=== PATIENT | male | born 1980 | race Caucasian/White ===

== ENCOUNTER 2018-09-08 15:20 | Emergency (ER) | payer SELFPAY ==
[2018-09-08 15:46] LABS: ABSOLUTE BASOPHILS # (AUTO) 0.1 10^3/uL (0.0-0.2); ABSOLUTE EOSINOPHILS # (AUTO) 0.3 10^3/uL (0.0-0.6); ABSOLUTE LYMPHOCYTES (AUTO) 2.5 10^3/uL (0.5-4.7); ABSOLUTE MONOCYTES (AUTO) 0.9 10^3/uL (0.1-1.4); ABSOLUTE NEUT (AUTO) 6.5 10^3/uL (1.7-8.2); BASOPHILS % (AUTO) 0.7 % (0-2); EOSINOPHILS % (AUTO) 3.4 % (0-6); HEMATOCRIT 50.2 % (37.9-51.0); HEMOGLOBIN 17.3 g/dL (13.5-17.0); LYMPHOCYTES % (AUTO) 24.2 % (13-45); MEAN CORPUSCULAR HEMOGLOBIN 32.3 pg (27.0-33.4); MEAN CORPUSCULAR HGB CONC 34.4 g/dL (32.0-36.0); MEAN CORPUSCULAR VOLUME 94 fl (80-97); MONOCYTES % (AUTO) 8.3 % (3-13); PLATELET COUNT 223 10^3/uL (150-450); RED BLOOD COUNT 5.36 10^6/uL (4.35-5.55); RED CELL DISTRIBUTION WIDTH 12.2 % (11.5-14.0); SEGMENTED NEUTROPHILS % (AUTO) 63.4 % (42-78); TOTAL CELLS COUNTED % (AUTO) 100 %; WHITE BLOOD COUNT 10.3 10^3/uL (4.0-10.5)
[2018-09-08 16:05] LABS: ALANINE AMINOTRANSFERASE 65 U/L (21-72); ALBUMIN 4.7 g/dL (3.5-5.0); ALCOHOL 43 mg/dL (NONE DETECTED); ALKALINE PHOSPHATASE 75 U/L (38-126); ANION GAP 15 (5-19); ASPARTATE AMINO TRANSFERASE 49 U/L (17-59); BILIRUBIN,DIRECT 0.2 mg/dL (0.0-0.4); BILIRUBIN,TOTAL 0.6 mg/dL (0.2-1.3); BLOOD UREA NITROGEN 11 mg/dL (7-20); CARBON DIOXIDE 21 mmol/L (22-30); CHLORIDE 107 mmol/L (98-107); GLUCOSE 90 mg/dL (75-110); POTASSIUM 4.5 mmol/L (3.6-5.0); SODIUM 142.5 mmol/L (137-145); TOTAL PROTEIN 7.2 g/dL (6.3-8.2)
[2018-09-08 16:16] LABS: APPEARANCE,URINE CLEAR; BILIRUBIN,URINE NEGATIVE (NEGATIVE); COLOR,URINE YELLOW; GLUCOSE, URINE NEGATIVE (NEGATIVE); KETONES,URINE TRACE mg/dL (NEGATIVE); LEUKOCYTE ESTERASE,URINE NEGATIVE (NEGATIVE); NITRITE,URINE NEGATIVE (NEGATIVE); PROTEIN,URINE NEGATIVE (NEGATIVE); URINE SPECIFIC GRAVITY 1.009; UROBILINOGEN,URINE NEGATIVE mg/dL (<2.0)
[2018-09-08 16:39] LABS: URINE AMPHETAMINES SCREEN NEGATIVE; URINE BARBITURATES SCREEN NEGATIVE; URINE BENZODIAZEPINES SCREEN NEGATIVE; URINE COCAINE SCREEN NEGATIVE; URINE MARIJUANA (THC) SCREEN UNCONFIRMED POSITIVE; URINE METHADONE SCREEN NEGATIVE; URINE PHENCYCLIDINE SCREEN NEGATIVE
[2018-09-08 17:15] VITALS: BP 111/79
--- NOTE | 2018-09-08 17:27 | ER Document Report ---
ED Seizure - General Chief Complaint: Seizure Stated Complaint: POSSIBLE SEIZURE Time Seen by Provider: 09/08/18 16:20 Notes: Patient had a seizure today, witnessed by his . He has a seizure disorder for which she takes Depakote 250 mg, 3 pills twice a day. Patient says he has been taking his medications as prescribed. says that he had his most recent seizure yesterday, but then is for 3 weeks before that that it was the next most recent. Has been told that his seizures are stress related and that he is more prone to having them when he is under stressful conditions. Did not bite his tongue and did not lose control of his bladder or bowel. Patient has had seizures since 2016 when he suffered a "heat stroke", but says they were told he had a CVA. She says that when he has a seizure his left side becomes very weak. Has not been sick recently. No fevers. Has a history of bipolar disorder and PTSD. Patient says he does drink small amount of alcohol occasionally. First visit to our emergency department. Patient and recently moved here to [place]. - Related Data Allergies/Adverse Reactions: bee venom protein (honey bee) Allergy (Verified 09/08/18 17:16) Past Medical History - Social History Smoking Status: Current Every Day Smoker Frequency of alcohol use: Occasional Family History: Reviewed & Not Pertinent Patient has suicidal ideation: No Patient has homicidal ideation: No Pulmonary Medical History: Reports: Hx Asthma Neurological Medical History: Reports: Hx Seizures Psychiatric Medical History: Reports: Hx Bipolar Disorder, Hx Schizophrenia Past Surgical History: Reports: Hx Appendectomy, Hx Orthopedic Surgery - L Shoulder Review of Systems - Review of Systems Notes: REVIEW OF SYSTEMS: CONSTITUTIONAL : Denies fever. EENT: Denies eye, ear, nose or mouth or throat pain or other symptoms. CARDIOVASCULAR: Denies chest pain. RESPIRATORY: Denies cough, chest congestion, or shortness of breath. GASTROINTESTINAL: Denies abdominal pain or nausea, vomiting, or diarrhea. GENITOURINARY: Denies difficulty or painful urinating, urinary frequency, blood in urine. MUSCULOSKELETAL: Denies back or neck pain. Denies joint pain or swelling. SKIN: Denies rash or skin lesions. NEUROLOGICAL: See HPI. Denies headache. Denies sensory loss or motor deficits. ALL OTHER SYSTEMS REVIEWED AND NEGATIVE. Physical Exam - Vital signs Vitals: Resp Pulse Ox 20 95 09/08/18 15:35 09/08/18 15:35 Interpretation: Normal. No: Febrile Notes: PHYSICAL EXAMINATION: GENERAL: Well-appearing, in no acute distress. Awake and alert and answers questions appropriately. HEAD: Atraumatic, normocephalic. EYES: Pupils equal round and reactive to light, extraocular movements intact. ENT: oropharynx clear without exudates. Moist mucous membranes. Tongue not chewed. NECK: Normal range of motion, supple. LUNGS: Breath sounds clear and equal bilaterally. HEART: Regular rate and rhythm without murmurs. ABDOMEN: Soft, nontender. No guarding or rebound. No masses. BACK: No tenderness throughout entire back. EXTREMITIES: Normal range of motion without pain. NEUROLOGICAL: Normal speech, normal gait. Normal sensory, motor, and reflex exams. Awake, alert, and oriented x3. Cranial nerves normal. PSYCH: Normal mood, normal affect. SKIN: Warm, dry, no rashes. Course - Re-evaluation Re-evalutation: 09/08/18 18:22 Had no additional seizures while in the emergency department. Labs were essentially unremarkable. His Depakote level is in the lower most portion of the therapeutic range. I recommended that they increase his nighttime dose of Depakote to 4 pills. Asked them to try to establish with a local neurologist, perhaps in [place]. [facility] information about [facility]. - Vital Signs Vital signs: Temp Pulse Resp BP Pulse Ox 98.1 F 20 111/79 96 09/08/18 17:15 09/08/18 17:01 09/08/18 17:01 09/08/18 17:01 - Laboratory Result Diagrams: 09/08/18 15:00 09/08/18 15:00 Laboratory results interpreted by me: 09/08/18 09/08/18 09/08/18 15:00 15:00 15:45 Hgb 17.3 H Carbon Dioxide 21 L Urine Ketones TRACE H Discharge - Discharge Clinical Impression: Seizures Condition: Stable Disposition: HOME, SELF-CARE Additional Instructions: Seizure You have had a seizure. Seizure disorders (epilepsy) of one sort or another affect about one out of 50 people. The seizure occurs because of abnormal electrical activity in the brain. Seizures may be due to drugs and alcohol, strokes, brain injury, or infection. In the most common form of epilepsy, no cause can be found. You will require further evaluation to determine the cause of your seizure, and to determine whether anti-seizure medication is required. This follow-up testing is important, so please call us if you encounter problems with scheduling of tests or appointments. YOU SHOULD NOT DRIVE until released to do so by your physician. The law requires that seizures be reported to the auto driver's license bureau--a seizure while driving could be catastrophic. Call the doctor if seizures recur, or if you develop new symptoms such as fever, severe headache, stiff neck, confusion or increasing sleepiness, weakness or numbness, or visual problems. Your Depakote level was 57. The therapeutic range is from 50-120. Therefore, you are in the lower range of the therapeutic range. I would recommend you increase your Depakote by 1 pill at nighttime. You did have a small amount of alcohol in your system and you need to know that that might cause you to have a seizure. FOLLOW-UP CARE: If you have been referred to a physician for follow-up care, call the [facility] office for an appointment as you were instructed or within the next two days. If you experience worsening or a significant change in your symptoms, notify the physician immediately or return to the Emergency Department at any time for re-evaluation. Enclosed in your discharge paperwork is information about the [facility] here in [place].. It would be worth her while to contact them to see if you are eligible to be seen there for your medical care.
[2018-09-08] MEDS ORDERED: ZIPRASIDONE HCL 20 MG CAPSULE PO ONE (17:38)
[2018-09-08] MEDS ORDERED: OLANZAPINE 5 MG TAB.RAPDIS PO ONE (17:38)
[2018-09-08] MEDS ORDERED: DIPHENHYDRAMINE HCL 50 MG CAPSULE PO ONE (17:40)
--- NOTE | 2018-09-09 12:43 | EKG REPORT ---
SEVERITY:- NORMAL ECG - SINUS RHYTHM : Confirmed by: Aleta Johnson 09-Sep-2018 12:42:00
== END 2018-09-08 17:48 | disposition home or self-care (01) ==
LOC: ER 15:20
DX: G40.909 Epilepsy, unspecified, not intractable, without status epilepticus (principal); F17.200 Nicotine dependence, unspecified, uncomplicated
CPT/HCPCS: 36415; 80053; 80164; 80307; 81001; 82962; 83735; 85025; 93005; 93010; 99284

== ENCOUNTER 2019-03-08 12:21 | Emergency (ER) | payer SELFPAY ==
[2019-03-08 12:43] LABS: ABSOLUTE EOSINOPHILS # (AUTO) 0.2 10^3/uL (0.0-0.6); ABSOLUTE LYMPHOCYTES (AUTO) 2.1 10^3/uL (0.5-4.7); ABSOLUTE MONOCYTES (AUTO) 0.5 10^3/uL (0.1-1.4); ABSOLUTE NEUT (AUTO) 4.8 10^3/uL (1.7-8.2); BASOPHILS % (AUTO) 0.6 % (0-2); EOSINOPHILS % (AUTO) 2.3 % (0-6); HEMATOCRIT 45.6 % (37.9-51.0); HEMOGLOBIN 15.8 g/dL (13.5-17.0); MEAN CORPUSCULAR HEMOGLOBIN 31.3 pg (27.0-33.4); MEAN CORPUSCULAR HGB CONC 34.7 g/dL (32.0-36.0); MEAN CORPUSCULAR VOLUME 90 fl (80-97); MONOCYTES % (AUTO) 6.3 % (3-13); PLATELET COUNT 225 10^3/uL (150-450); RED BLOOD COUNT 5.06 10^6/uL (4.35-5.55); RED CELL DISTRIBUTION WIDTH 12.5 % (11.5-14.0); SEGMENTED NEUTROPHILS % (AUTO) 62.8 % (42-78); TOTAL CELLS COUNTED % (AUTO) 100 %; WHITE BLOOD COUNT 7.6 10^3/uL (4.0-10.5)
[2019-03-08 13:02] LABS: ALBUMIN 4.1 g/dL (3.5-5.0); ALCOHOL 20 mg/dL (NONE DETECTED); ALKALINE PHOSPHATASE 71 U/L (38-126); ANION GAP 12 (5-19); ASPARTATE AMINO TRANSFERASE 49 U/L (17-59); BILIRUBIN,DIRECT 0.2 mg/dL (0.0-0.4); BILIRUBIN,TOTAL 0.6 mg/dL (0.2-1.3); BLOOD UREA NITROGEN 9 mg/dL (7-20); CARBON DIOXIDE 19 mmol/L (22-30); CHLORIDE 109 mmol/L (98-107); GLUCOSE 86 mg/dL (75-110); POTASSIUM 3.9 mmol/L (3.6-5.0); TOTAL PROTEIN 6.5 g/dL (6.3-8.2)
--- NOTE | 2019-03-08 13:59 | ER Document Report ---
ED Seizure - General Chief Complaint: Seizure Stated Complaint: POSSIBLE SEIZURE Time Seen by Provider: 03/08/19 13:54 Notes: Patient brought in by EMS after having fallen out at work and apparently having had a seizure. Patient does not remember anything in fact, asked me "what happened?" When I entered his room. Patient says he was at work in the heat and does not remember anything after that. He does have a history of seizure disorder for which he is supposed to be taking Depakote 500 mg twice a day, but says he is missed some doses recently. He is currently complaining of some knee pain, back pain, and says he hit the front of his head. His last seizure was in September. Seizures apparently related to an old head injury in which the patient had a fracture of his left face and orbit and had to have a plate put in that area. Patient has not been ill or sick recently. Does drink alcohol. Smokes cigarettes. Denies chest pain. Denies abdominal pain. Denies any difficulty breathing. - Related Data Allergies/Adverse Reactions: bee venom protein (honey bee) Allergy (Verified 09/08/18 17:16) Past Medical History - Social History Smoking Status: Current Every Day Smoker Chew tobacco use (# tins/day): No Frequency of alcohol use: Everyday per Pt fiance. Drug Abuse: None Family History: Reviewed & Not Pertinent Patient has suicidal ideation: No Patient has homicidal ideation: No Pulmonary Medical History: Reports: Hx Asthma Neurological Medical History: Reports: Hx Seizures Renal/ Medical History: Denies: Hx Peritoneal Dialysis Psychiatric Medical History: Reports: Hx Bipolar Disorder, Hx Schizophrenia Past Surgical History: Reports: Hx Appendectomy, Hx Orthopedic Surgery - L Shoulder Review of Systems - Review of Systems -: Yes ROS unobtainable due to patient's medical condition Physical Exam - Vital signs Vitals: Resp Pulse Ox 21 H 97 03/08/19 12:32 03/08/19 12:32 Interpretation: Normal Notes: PHYSICAL EXAMINATION: GENERAL: Well-appearing, no acute distress. HEAD: Atraumatic, normocephalic. I do not see any abrasions or cuts or scrapes or swelling of the forehead region where the patient says he hit his head. NECK: Normal range of motion, supple. LUNGS: Breath sounds clear and equal bilaterally. HEART: Regular rate and rhythm without murmurs heard. ABDOMEN: Soft, nontender. No guarding or rebound or masses felt. Course - Re-evaluation Re-evalutation: 03/08/19 19:05 As I was finishing my initial examination of the patient, he asked how long it was going to take to finish taking care of him and I told him about an hour may be two and he said that he wanted to leave. I told him he had not been evaluated in good fall and reinjure himself. Also could choke or strangle her aspirate and causing serious injury or even . Patient understands but says he still wants to leave. His be unsafe was in the room during all of this conversation. Patient insisted upon leaving AGAINST MEDICAL ADVICE no matter what the potential consequences. It is my opinion that the patient has the capacity to make this judgment and is able to make decisions regarding his health care. 03/08/19 19:07 Patient's Depakote level came back essentially undetectable so obviously the patient has not been taking his medications at all. He did not want a prescription for Depakote when he left. - Vital Signs Vital signs: Temp Pulse Resp BP Pulse Ox 99.2 F 66 6 L 110/80 95 03/08/19 12:34 03/08/19 12:34 03/08/19 13:30 03/08/19 13:30 03/08/19 13:30 - Laboratory Result Diagrams: 03/08/19 12:26 03/08/19 12:26 Laboratory results interpreted by me: 03/08/19 03/08/19 12:26 12:26 Chloride 109 H Carbon Dioxide 19 L Valproic Acid < 10.0 L Discharge - Discharge Clinical Impression: Seizure Condition: Stable Disposition: AGAINST MEDICAL ADVICE Additional Instructions: Seizure You have probably had a seizure. Seizure disorders (epilepsy) of one sort or another affect about one out of 50 people. The seizure occurs because of abnormal electrical activity in the brain. Seizures may be due to drugs and alcohol, strokes, brain injury, or infection. In the most common form of epilepsy, no cause can be found. You will require further evaluation to determine the cause of your seizure, and to determine whether anti-seizure medication is required. This follow-up testing is important, so please call us if you encounter problems with scheduling of tests or appointments. YOU SHOULD NOT DRIVE until released to do so by your physician. The law requires that seizures be reported to the tanker truck driver's license bureau--a seizure whi le driving could be catastrophic. Call the doctor if seizures recur, or if you develop new symptoms such as fever, severe headache, stiff neck, confusion or increasing sleepiness, weakness or numbness, or visual problems. You are leaving against our advice, SHEILA. I have advised her that you could have another seizure at any time and suffer significant injuries. Some injuries can be mild, some can be serious, some can actually be fatal if you were to choke and aspirate saliva during a seizure. In spite of my advising you to stay and be fully evaluated, you are leaving against my advice. Please feel free to come back at any time if you wish to be further evaluated more completely.
[2019-03-08 14:24] VITALS: BP 110/80
--- NOTE | 2019-03-08 17:38 | EKG REPORT ---
SEVERITY:- NORMAL ECG - SINUS RHYTHM ST ELEV, PROBABLE NORMAL EARLY REPOL PATTERN : Confirmed by: Edmond Kelly MD 08-Mar-2019 17:37:57
== END 2019-03-08 14:17 | disposition left against medical advice (07) ==
LOC: ER 12:21
DX: G40.909 Epilepsy, unspecified, not intractable, without status epilepticus (principal); F17.210 Nicotine dependence, cigarettes, uncomplicated
CPT/HCPCS: 36415; 80053; 80164; 80307; 82962; 83735; 85025; 93005; 93010

== ENCOUNTER → 2019-05-16 | Outpatient (CLI) | payer OTHER ==
[2019-05-16 08:29] LABS: APPEARANCE,URINE CLEAR; BILIRUBIN,URINE NEGATIVE (NEGATIVE); COLOR,URINE YELLOW; GLUCOSE, URINE NEGATIVE (NEGATIVE); KETONES,URINE TRACE mg/dL (NEGATIVE); LEUKOCYTE ESTERASE,URINE NEGATIVE (NEGATIVE); NITRITE,URINE NEGATIVE (NEGATIVE); PROTEIN,URINE NEGATIVE (NEGATIVE); URINE SPECIFIC GRAVITY 1.012
[2019-05-16 08:31] LABS: ABSOLUTE BASOPHILS # (AUTO) 0.1 10^3/uL (0.0-0.2); ABSOLUTE EOSINOPHILS # (AUTO) 0.3 10^3/uL (0.0-0.6); BASOPHILS % (AUTO) 0.6 % (0-2); TOTAL CELLS COUNTED % (AUTO) 100 %
[2019-05-16 08:39] LABS: ABSOLUTE MONOCYTES (AUTO) 0.7 10^3/uL (0.1-1.4); ABSOLUTE NEUT (AUTO) 6.5 10^3/uL (1.7-8.2); EOSINOPHILS % (AUTO) 3.1 % (0-6); HEMATOCRIT 50.3 % (37.9-51.0); HEMOGLOBIN 17.3 g/dL (13.5-17.0); LYMPHOCYTES % (AUTO) 20.9 % (13-45); MEAN CORPUSCULAR HEMOGLOBIN 31.3 pg (27.0-33.4); MEAN CORPUSCULAR HGB CONC 34.4 g/dL (32.0-36.0); MEAN CORPUSCULAR VOLUME 91 fl (80-97); MONOCYTES % (AUTO) 7.4 % (3-13); PLATELET COUNT 175 10^3/uL (150-450); RED BLOOD COUNT 5.53 10^6/uL (4.35-5.55); RED CELL DISTRIBUTION WIDTH 12.7 % (11.5-14.0); WHITE BLOOD COUNT 9.6 10^3/uL (4.0-10.5)
[2019-05-16 08:59] LABS: ALBUMIN 4.3 g/dL (3.5-5.0); ALKALINE PHOSPHATASE 68 U/L (38-126); ANION GAP 10 (5-19); ASPARTATE AMINO TRANSFERASE 39 U/L (17-59); BILIRUBIN,DIRECT 0.2 mg/dL (0.0-0.4); BILIRUBIN,TOTAL 0.9 mg/dL (0.2-1.3); BLOOD UREA NITROGEN 9 mg/dL (7-20); CALCIUM 9.6 mg/dL (8.4-10.2); CARBON DIOXIDE 25 mmol/L (22-30); CHLORIDE 105 mmol/L (98-107); CHOLESTEROL 195.39 mg/dL (0-200); GLUCOSE 99 mg/dL (75-110); POTASSIUM 4.3 mmol/L (3.6-5.0); TOTAL PROTEIN 7.2 g/dL (6.3-8.2); TRIGLYCERIDES 142 mg/dL (<150); URIC ACID 7.7 mg/dL (3.5-8.5)
[2019-05-16 09:10] LABS: DIRECT LDL 155 mg/dL (<100)
[2019-05-16 09:38] LABS: FREE T4 (FREE THYROXINE) 1.13 ng/dL (0.78-2.19)
[2019-05-16 09:52] LABS: THYROID STIMULATING HORMONE 1.05 uIU/mL (0.47-4.68)
== END ==
LOC: OD 07:16
DX: F44.5 Conversion disorder with seizures or convulsions (principal)
CPT/HCPCS: 36415; 80053; 80061; 80164; 81001; 83036; 84439; 84443; 84550; 85025

== ENCOUNTER → 2019-06-27 | Outpatient (CLI) | payer OTHER | LOC: CCC 15:57 | DX: G40.89 Other seizures (principal) | CPT/HCPCS: 36415; 80164 ==

== ENCOUNTER → 2020-03-11 | Outpatient (CLI) | payer OTHER ==
[2020-03-11 09:32] LABS: ABSOLUTE BASOPHILS # (AUTO) 0.1 10^3/uL (0.0-0.2); ABSOLUTE EOSINOPHILS # (AUTO) 0.3 10^3/uL (0.0-0.6); ABSOLUTE LYMPHOCYTES (AUTO) 2.2 10^3/uL (0.5-4.7); ABSOLUTE MONOCYTES (AUTO) 0.6 10^3/uL (0.1-1.4); ABSOLUTE NEUT (AUTO) 4.9 10^3/uL (1.7-8.2); BASOPHILS % (AUTO) 0.7 % (0-2); EOSINOPHILS % (AUTO) 3.5 % (0-6); HEMATOCRIT 47.8 % (37.9-51.0); HEMOGLOBIN 16.8 g/dL (13.5-17.0); LYMPHOCYTES % (AUTO) 27.5 % (13-45); MEAN CORPUSCULAR HEMOGLOBIN 32.3 pg (27.0-33.4); MEAN CORPUSCULAR HGB CONC 35.2 g/dL (32.0-36.0); MEAN CORPUSCULAR VOLUME 92 fl (80-97); MONOCYTES % (AUTO) 7.2 % (3-13); PLATELET COUNT 210 10^3/uL (150-450); RED BLOOD COUNT 5.21 10^6/uL (4.35-5.55); RED CELL DISTRIBUTION WIDTH 13.1 % (11.5-14.0); SEGMENTED NEUTROPHILS % (AUTO) 61.1 % (42-78); TOTAL CELLS COUNTED % (AUTO) 100 %; WHITE BLOOD COUNT 8.1 10^3/uL (4.0-10.5)
[2020-03-11 09:58] LABS: ALBUMIN 4.3 g/dL (3.5-5.0); ALKALINE PHOSPHATASE 69 U/L (38-126); ANION GAP 6 (5-19); ASPARTATE AMINO TRANSFERASE 46 U/L (17-59); BILIRUBIN,TOTAL 0.9 mg/dL (0.2-1.3); BLOOD UREA NITROGEN 10 mg/dL (7-20); CALCIUM 9.4 mg/dL (8.4-10.2); CARBON DIOXIDE 27 mmol/L (22-30); CHLORIDE 106 mmol/L (98-107); CHOLESTEROL 216.11 mg/dL (0-200); GLUCOSE 118 mg/dL (75-110); POTASSIUM 4.5 mmol/L (3.6-5.0); TRIGLYCERIDES 199 mg/dL (<150)
[2020-03-11 10:09] LABS: DIRECT LDL 173 mg/dL (<100)
[2020-03-11 10:15] LABS: VLDL CHOLESTEROL 39.8 mg/dL (10-31)
--- NOTE | 2020-03-11 13:00 | RADIOLOGY REPORT (SQ) ---
EXAM DESCRIPTION: CHEST PA/LATERAL IMAGES COMPLETED DATE/TIME: 03/11/2020 9:04 am REASON FOR STUDY: CHEST PAIN ON BREATHING COMPARISON: None. EXAM PARAMETERS: NUMBER OF VIEWS: two views TECHNIQUE: Digital Frontal and Lateral radiographic views of the chest acquired. RADIATION DOSE: NA LIMITATIONS: none FINDINGS: LUNGS AND PLEURA: No opacities, masses or pneumothorax. No pleural effusion. MEDIASTINUM AND HILAR STRUCTURES: No masses or contour abnormalities. HEART AND VASCULAR STRUCTURES: Heart normal size. No evidence for failure. BONES: No acute findings. HARDWARE: None in the chest. OTHER: No other significant finding. IMPRESSION: NO SIGNIFICANT RADIOGRAPHIC FINDING IN THE CHEST. TECHNICAL DOCUMENTATION: JOB ID: [id number] [employer]- All Rights Reserved Reading location - IP/workstation name: [email or web address]
== END ==
LOC: CCC 08:41
PROVIDERS: ATTEND Family Medicine
DX: Z00.00 Encounter for general adult medical examination without abnormal findings (principal); R07.1 Chest pain on breathing
CPT/HCPCS: 36415; 71046; 80053; 80061; 83036; 85025